=== PATIENT | female | born 1965 | race Caucasian/White ===

== ENCOUNTER 2017-06-16 07:13 | Emergency (ER) | payer BC ==
--- NOTE | 2017-06-16 09:08 | RAD ---
INDICATION: Abdominal "bloating and cramping" COMPARISON: None TECHNIQUE: Supine and upright views of the abdomen were obtained. FINDINGS: In the left upper abdomen there are air-filled loops of bowel measuring up to 3.3 cm in diameter. The morphology of these loops are consistent with small bowel. Stool is noted throughout the hesham ascending and descending colon, but there is air overlying the expected location of the rectum. No grossly abnormal or pathologic appearing calcifications are noted. Visualized bones are within normal limits for the patient's age. IMPRESSION: 1. At the upper left abdomen there are air-filled loops of small bowel measuring up to 3.3 cm in diameter, mildly distended. 2. There is a large amount of stool throughout the entire length of the colon, but there is air in the rectum. Please correlate to signs and symptoms of constipation.
[2017-06-16 09:11] LABS: Hematocrit 42 % (35-47); Hemoglobin 14.2 g/dl (12.0-16.0); Mean Corpuscular HGB Conc 34 g/dl (31-36); Mean Corpuscular Hemoglobin 31 pg (27-31); Mean Corpuscular Volume 92 fL (80-97); Mean Platelet Volume 8 um3 (7.4-10.4); Red Blood Count 4.53 10^6/ul (4.0-5.4); Red Cell Distribution Width 12 % (10.5-15); White Blood Count 5.7 10^3/ul (3.5-10.8)
[2017-06-16 09:25] LABS: Albumin 4.1 g/dL (3.2-5.2); BUN/Creatinine Ratio 11.6 (8-20); C Reactive Protein 3.72 mg/L (< 5.00); Calcium 9.1 mg/dL (8.6-10.3); EGFR African American 114.9 (>60); EGFR Non-African American 89.3 (>60); Potassium 3.7 mmol/L (3.5-5.0); Total Bilirubin 0.7 mg/dL (0.2-1.0); Total Protein 7.1 g/dL (6.4-8.9)
[2017-06-16 10:00] VITALS: BP 111/72
--- NOTE | 2017-06-16 18:34 | ED ---
I, Trent,Ravi, scribed for Josh Tony MD on 06/16/17 at 0808 . Abdominal Pain/Female - HPI Summary HPI Summary: This 52 y/o female presents to ED for acute onset of diffuse abd pain since lunch yesterday. Positive abd bloating/cramping, gas, decreased appetite. Positive low back pain since 2 weeks ago. Negative n/v. Very small BM yesterday. Pt attempted to control bloating and gas with OTC Gas X pills without much relief. PMHx includes chronic low back pain and recurrent abd bloating that has been followed up by 4 colonoscopies in last 14 months with benign polyps removal. Pt states that her abd bloating is usually relieved by flatulance, but was not able to pass "enough" gas since yesterday. She is currently on low mag diet. PSHx includes appy. Gallbladder is still intact. Negative FHx of colon CA. Primary care involves Dr. Ca and Dr. Mcmahan. Plan of care involving CT abd imaging studies is discussed with pt. R/b/a of CT imaging studies is shared with pt. Pt is unsure about CT but is currently agreeable to X-ray. - History of Current Complaint Chief Complaint: EDAbdPain Stated Complaint: ABD BLOATING/CRAMPING Time Seen by Provider: 06/16/17 07:34 Hx Obtained From: Patient, Medical Records Onset/Duration: Still Present Timing: Constant Pain Intensity: 3 Pain Scale Used: 0-10 Numeric Location: Diffuse Radiates: No Allergies/Adverse Reactions: Allergies Allergy/AdvReac Type Severity Reaction Status Date / Time Codeine Allergy MIGRAINES Verified 04/22/14 06:43 PMH/Surg Hx/FS Hx/Imm Hx Musculoskeletal History: Reports: Other Musculoskeletal History - herniated disc Sensory History: Reports: Hx Contacts or Glasses - GLASSES Denies: Hx Hearing Aid Opthamlomology History: Reports: Hx Contacts or Glasses - GLASSES - Cancer History Hx Chemotherapy: No Hx Radiation Therapy: No - Surgical History Surgery Procedure, Year, and Place: 1981 APPENDECTOMY, [facility]. 1990 BILATERAL TUBAL LIGATION, [facility] Hx Anesthesia Reactions: No Infectious Disease History: No Infectious Disease History: Denies: Traveled Outside the [place] in Last 30 Days - Family History Known Family History: Negative: Other - breast CA. Negative colon CA - Social History Alcohol Use: Daily Alcohol Amount: 2 GLASSES WINE/DAY Hx Substance Use: No Substance Use Type: Reports: None Hx Tobacco Use: No Smoking Status (MU): Never Smoked Tobacco Have You Smoked in the Last Year: No Review of Systems Negative: Fever Positive: Abdominal Pain - bloating/cramping, Other - Small BM yesterday. Decreased appetite. . Negative: Vomiting, Nausea Negative: dysuria Positive: Other - low back pain. Pt is unsure if this is chronic or new onset All Other Systems Reviewed And Are Negative: Yes Physical Exam - Summary Physical Exam Summary: The patient is well-nourished in no acute distress and in no acute pain. The skin is warm and dry and skin color reflects adequate perfusion. HEENT: The head is normocephalic and atraumatic. The pupils are equal and reactive. The conjunctivae are clear and without drainage. Nares are patent and without drainage. Mouth reveals moist mucous membranes and the throat is without erythema and exudate. The external ears are intact. The ear canals are patent and without drainage. The tympanic membranes are intact. Neck is supple with full range of motion and non-tender. There are no carotid bruits. There is no neck vein distension. Respiratory: Chest is non-tender. Lungs are clear to auscultation and breath sounds are symmetrical and equal. Cardiovascular: Hear is regular rate and rhythm. There is no murmur or rub auscultated. There is no peripheral edema and pulses are symmetrical and equal. Abdomen: The abdomen is soft and non-tender. Positive mild epigastric pain. Mildly diminised bowel sound. Musculoskeletal: There is no back pain noted. Extremities are non-tender with full range of motion. There is good capillary refill. There is no peripheral edema or calf tenderness elicited. Neurological: Patient is alert and oriented to person, place and time. The patient has symmetrical motor strength in all four extremities. Cranial nerves are grossly intact. Deep tendon reflexes are symmetrical and equal in all four extremities. Psychiatric: The patient has an appropriate affect and does not exhibit any anxiety or depression. Triage Information Reviewed: Yes Vital Signs On Initial Exam: Initial Vitals Temp Pulse Resp BP Pulse Ox 97.8 F 68 16 112/77 97 06/16/17 07:15 06/16/17 07:15 06/16/17 07:15 06/16/17 07:15 06/16/17 07:15 Vital Signs Reviewed: Yes - Pretty Coma Scale Coma Scale Total: 15 Diagnostics - Vital Signs Vital Signs Temp Pulse Resp BP Pulse Ox 06/16/17 07:15 97.8 F 68 16 112/77 97 - Laboratory Lab Results: Lab Results 06/16/17 06/16/17 06/16/17 Range/Units 08:58 08:58 08:58 WBC 5.7 (3.5-10.8) 10^3/ul RBC 4.53 (4.0-5.4) 10^6/ul Hgb 14.2 (12.0-16.0) g/dl Hct 42 (35-47) % MCV 92 (80-97) fL MCH 31 (27-31) pg MCHC 34 (31-36) g/dl RDW 12 (10.5-15) % Plt Count 242 (150-450) 10^3/ul MPV 8 (7.4-10.4) um3 Neut % (Auto) 60.5 (38-83) % Lymph % (Auto) 27.7 (25-47) % [place] % (Auto) 8.7 (1-9) % Eos % (Auto) 0.7 (0-6) % Baso % (Auto) 2.4 H (0-2) % Absolute Neuts (auto) 3.5 (1.5-7.7) 10^3/ul Absolute Lymphs (auto) 1.6 (1.0-4.8) 10^3/ul Absolute Monos (auto) 0.5 (0-0.8) 10^3/ul Absolute Eos (auto) 0 (0-0.6) 10^3/ul Absolute Basos (auto) 0.1 (0-0.2) 10^3/ul Absolute Nucleated RBC 0 10^3/ul Nucleated RBC % 0 Sodium 134 (133-145) mmol/L Potassium 3.7 (3.5-5.0) mmol/L Chloride 103 (101-111) mmol/L Carbon Dioxide 26 (22-32) mmol/L Anion Gap 5 (2-11) mmol/L BUN 8 (6-24) mg/dL Creatinine 0.69 (0.51-0.95) mg/dL Est GFR ( Amer) 114.9 (>60) Est GFR (Non-Af Amer) 89.3 (>60) BUN/Creatinine Ratio 11.6 (8-20) Glucose 88 (70-100) mg/dL Lactic Acid 0.7 (0.5-2.0) mmol/L Calcium 9.1 (8.6-10.3) mg/dL Total Bilirubin 0.70 (0.2-1.0) mg/dL AST 27 (13-39) U/L ALT 29 (7-52) U/L Alkaline Phosphatase 37 (34-104) U/L C-Reactive Protein 3.72 (< 5.00) mg/L Total Protein 7.1 (6.4-8.9) g/dL Albumin 4.1 (3.2-5.2) g/dL Globulin 3.0 (2-4) g/dL Albumin/Globulin Ratio 1.4 (1-3) Lipase 12 (11.0-82.0) U/L Result Diagrams: 06/16/17 08:58 06/16/17 08:58 Lab Statement: Any lab studies that have been ordered have been reviewed, and results considered in the medical decision making process. - Radiology Abd Xray Interpretation: Positive (See Comments) - 1. At the upper left abdomen there are air-filled loops of small bowel measuring up to 3.3 cm in diameter, mildly distended. 2. There is a large amount of stool throughout the entire length of the colon, but there is air in the rectum. Please correlate to signs and symptoms of constipation. Radiology Interpretation Completed By: Radiologist Re-Evaluation - Re-Evaluation First Eval Re-Evaluation Time: 09:48 Comment: in room to review X-ray abd imaging result and bloodwork. Abdominal Pain Fem Course/Dx - Course Course Of Treatment: This 52 y/o female presents to ED for abd bloating/ cramping since yesterday's lunch. Pt states that she has had recurrent abd bloating before which is alleviated by flatulance, but was not able to relieve this episode of abd discomfort. Abd X-ray indicates air-filled loops of small bowel measuring up to 3.3 cm in diameter, mildly distended in LUQ and large amount of stool throughout colon. Blood work is wnl. Imaging result and lab work are reviewed with pt and present at bedside. Plan of care involving outpatient f/u with GI specialist and OTC laxative is discussed with pt, and she is agreeable at this moment. Emena is offered to pt, but she declined. - Diagnoses Differential Diagnosis: Positive: Bowel Obstruction, Constipation Provider Diagnoses: Constipation, Abdominal bloating Discharge - Discharge Plan Condition: Stable Disposition: HOME Patient Education Materials: Constipation (ED) Referrals: Margaret Mcmahan MD [Primary Care Provider] - 2 Days Claudio Ca MD [Medical Doctor] - 2 Days The documentation as recorded by the Trent nj Soohyun accurately reflects the service I personally performed and the decisions made by , Josh Tony MD.
== END 2017-06-16 10:00 | disposition home or self-care (01) ==
LOC: ED 07:13
DX: K59.00 Constipation, unspecified (principal); M54.5 Low back pain; R14.0 Abdominal distension (gaseous)
CPT/HCPCS: 36415; 74020; 80053; 83605; 83690; 85025; 86140; 99282